=== PATIENT | male | born 1985 | race African-American/Black ===

== ENCOUNTER 2021-09-29 15:21 | Outpatient (RCR) | payer OTHER | END 2021-10-03 | LOC: M PT 15:21 | PROVIDERS: ATTEND Orthopaedic Surgery Hand Surgery | DX: S93.401D Sprain of unspecified ligament of right ankle, subsequent encounter (principal); W18.30XD Fall on same level, unspecified, subsequent encounter | CPT/HCPCS: 97162; G0283 ==

== ENCOUNTER 2021-10-27 14:55 | Outpatient (RCR) | payer OTHER | END 2021-11-03 | LOC: M PT 14:55 | PROVIDERS: ATTEND Orthopaedic Surgery Hand Surgery | DX: S86.001A Unspecified injury of right Achilles tendon, initial encounter (principal); W18.30XA Fall on same level, unspecified, initial encounter; Y92.009 Unspecified place in unspecified non-institutional (private) residence as the place of occurrence of the external cause | CPT/HCPCS: 97110; 97530; G0283 ==

== ENCOUNTER 2021-11-20 15:14 | Outpatient (RCR) | payer OTHER | END 2021-12-03 | LOC: M PT 15:14 | PROVIDERS: ATTEND Orthopaedic Surgery Hand Surgery | DX: S86.011A Strain of right Achilles tendon, initial encounter (principal) ==

== ENCOUNTER → 2025-03-08 | Outpatient (REF) | payer OTHER ==
[2025-03-08 10:04] LABS: SEMEN APPEARANCE OPAQUE (OPAQUE); SEMEN VISCOSITY LIQUID (LIQUID); SEMEN VOLUME 2.6 ml (2.0-5.0); WBC CONCENTRATION <=1 M/ml (<=1 M/ml)
== END ==
LOC: M LAB REF 09:45
DX: Z30.2 Encounter for sterilization (principal)